=== PATIENT | female | born 1950 | race Caucasian/White ===

== ENCOUNTER 2019-10-30 06:31 | Day surgery (SDC) | payer MEDICARE, OTHER ==
[~2019-10-30 06:31] MED LIST: Lactated Ringers 1,000 ML IV SCH; Lidocaine 1%/Sod Bicarbonate in NS 8.4% 1 ML Syringe IDERM PRN; Sodium Chloride 0.9% 10 ML Syringe FLUSH PRN
--- NOTE | 2019-10-30 07:24 | PCM.PREANE ---
Preanesthetic Assessment - Procedure Proposed Procedure: Colonoscopy - Anesthesia/Transfusion/Family Hx Anesthesia History: Prior Anesthesia Without Reaction Family History of Anesthesia Reaction: No Transfusion History: No Prior Transfusion(s) - Review of Systems General: No Symptoms Pulmonary: No Symptoms Cardiovascular: Dyspnea on Exertion Gastrointestinal: No Symptoms Neurological: No Symptoms Other: Reports: None - Physical Assessment NPO Status Date: 10/29/19 NPO Status Time: 20:00 Vital Signs: Last Vital Signs Temp 36.3 C 10/30/19 06:40 Pulse 63 10/30/19 06:40 Resp 16 10/30/19 06:40 BP 137/72 10/30/19 06:40 Pulse Ox 96 10/30/19 06:40 Height: 1.65 m Weight: 113.398 kg ASA Class: 3 Mental Status: Alert & Oriented x3 Airway Class: Mallampati = 2 Dentition: Reports: Normal Dentition, [place](s) Thyro-Mental Finger Breadths: 3 Mouth Opening Finger Breadths: 2 ROM/Head Extension: Full Lungs: Clear to Auscultation, Normal Respiratory Effort Cardiovascular: Regular Rate, Regular Rhythm - Lab Values: Laboratory Last Values SARS Virus RNA (PCR) Negative (NEGATIVE) 10/28/19 09:30 - Allergies Allergies/Adverse Reactions: Allergies Allergy/AdvReac Type Severity Reaction Status Date / Time hydrochlorothiazide Allergy Rash Verified 10/29/19 15:14 COREY Inhibitors AdvReac Cough Verified 10/29/19 15:14 - Blood Blood Available: No Product(s) Available: None - Anesthesia Plan Pre-Op Medication Ordered: None Beta Viktoriya: Metoprolol Med Last Dose Date: 10/30/19 Med Last Dose Time: 05:30 - Acknowledgements Anesthesia Type Planned: MAC Pt an Appropriate Candidate for the Planned Anesthesia: Yes Alternatives and Risks of Anesthesia Discussed w Pt/Guardian: Yes Pt/Guardian Understands and Agrees with Anesthesia Plan: Yes PreAnesthesia Questionnaire HEENT History: Reports: Hard of Hearing, Other (See Below) Other HEENT History: hearing loss, wears hearing aids, wears glasses Cardiovascular History: Reports: High Cholesterol, Hypertension Respiratory History: Reports: Sleep Apnea Gastrointestinal History: Genitourinary History: Reports: None [employer] History: Reports: None Musculoskeletal History: Reports: Arthritis Neurological History: Reports: None Psychiatric History: Reports: None Endocrine/Metabolic History: Reports: Obesity/BMI 30+ Hematologic History: Reports: None Immunologic History: Reports: None Oncologic (Cancer) History: Reports: None Dermatologic History: Reports: None - Past Surgical History Head Surgeries/Procedures: Reports: None HEENT Surgical History: Reports: Tonsillectomy Cardiovascular Surgical History: Reports: None Respiratory Surgical History: Reports: None GI Surgical History: Reports: Colonoscopy Female Surgical History: Reports: D&C, Hysterectomy Male Surgical History: Reports: None Endocrine Surgical History: Reports: None Neurological Surgical History: Reports: None Musculoskeletal Surgical History: Reports: Other (See Below) Other Musculoskeletal Surgeries/Procedures:: right bunionectomy Oncologic Surgical History: Reports: None Dermatological Surgical History: Reports: None - SUBSTANCE USE Smoking Status *Q: Never Smoker Tobacco Use Within Last Twelve Months: No Second Hand Smoke Exposure: No Days Per Week of Alcohol Use: 0 Number of Drinks Per Day: 0 Total Drinks Per Week: 0 Recreational Drug Use History: No - HOME MEDS Home Medications: Home Meds Furosemide 30 mg PO DAILY 03/22/16 [History] Simvastatin 20 mg PO BEDTIME 03/22/16 [History] amLODIPine Besylate [Amlodipine Besylate] 10 mg PO DAILY 03/22/16 [History] Albuterol Sulfate [Albuterol Sulfate Hfa] 2 puff INH Q4H PRN 10/29/19 [History] Calcium Carbonate [Calcium] 600 mg PO DAILY 10/29/19 [History] Magnesium Oxide 250 mg PO DAILY 10/29/19 [History] Metoprolol Tartrate 100 mg PO BID 10/29/19 [History] Naproxen Sodium [Aleve] 220 mg PO BID PRN 10/29/19 [History] Potassium Gluconate 500 mg PO DAILY 10/29/19 [History] Simvastatin [Zocor] 20 mg PO BEDTIME 10/29/19 [History] Triamcinolone Acetonide 1 dose TOP BID PRN 10/29/19 [History] - CURRENT (IN HOUSE) MEDS Current Meds: Current Medications Lactated Ringer's (Ringers, Lactated) 1,000 mls @ 125 mls/hr IV ASDIRECTED LUCAS Stop: 10/30/19 23:00 Last Admin: 10/30/19 07:00 Dose: 125 mls/hr Lidocaine/Sodium Bicarbonate (Buffered Lidocaine 1% In Ns 8.4%) 0.25 ml IDERM ONETIME PRN PRN Reason: Prior to IV Start Stop: 10/30/19 18:00 Last Admin: 10/30/19 07:00 Dose: 0.25 ml Sodium Chloride (Saline Flush) 10 ml FLUSH ASDIRECTED PRN PRN Reason: Keep Vein Open Stop: 10/30/19 18:00
[2019-10-30] MEDS ORDERED: fentaNYL 100 MCG/2 ML SDV ONE (07:33)
[2019-10-30] MEDS ORDERED: Lidocaine 1% 4 ML ONE (07:33)
[2019-10-30] MEDS ORDERED: Propofol 200 MG/20 ML SDV ONE ×2 (07:33→08:19)
--- NOTE | 2019-10-30 08:40 | PCM.OPNOTE ---
- General Post-Op/Procedure Note Date of Surgery/Procedure: 10/30/19 Operative Procedure(s): Colonoscopy with cold forceps biopsy Findings: colon polyps x 4, diverticulosis Post-Op Diagnosis: Ascending colon polyps 2 mm x 2, Ascending colon polyp 3 mm, Rectal polyp 2 mm, Sigmoid diverticulosis Anesthesia Technique: MAC Primary Surgeon: Jasper Pierson Anesthesia Provider: Chas Mason EBL in mLs: 5 Complications: None Condition: Good Free Text/Narrative:: After the patient gave verbal and written consent she was placed on blood pressure and pulse ox monitoring. She was given IV sedation which she tolerated well. The olympus colonoscope was inserted per rectum and advanced to the cecum without difficulty. The ileocecal valve and appendiceal orfice were imaged documenting cecal intubation. The scope was slowly withdrawn. The prep was good , the views were good. 4 polyps were noted and removed with cold forceps biopsy : 2 mm ascending colon polyps x 2, 3 mm ascending colon polyp, 2 mm rectal polyp. There was good hemostasis at the end of the procedure. Mild to moderate sigmoid diverticulosis was noted. The scope was then retroflexed in the rectum and the details are above. The patient left the OR in good condition. There were no complications.
--- NOTE | 2019-10-30 08:40 | PCM48HPAN ---
Post Anesthesia Note - EVALUATION WITHIN 48HRS OF ANESTHETIC Vital Signs in Normal Range: Yes Patient Participated in Evaluation: Yes Respiratory Function Stable: Yes Airway Patent: Yes Cardiovascular Function Stable: Yes Hydration Status Stable: Yes Pain Control Satisfactory: Yes Nausea and Vomiting Control Satisfactory: Yes Mental Status Recovered: Yes Vital Signs: Last Vital Signs Temp 36.3 C 10/30/19 06:40 Pulse 63 10/30/19 06:40 Resp 16 10/30/19 06:40 BP 137/72 10/30/19 06:40 Pulse Ox 96 10/30/19 06:40 - COMMENTS/OBSERVATIONS Free Text/Narrative:: no anesthesia complications noted
[2019-10-30 08:41] VITALS: PULSE 54
[2019-10-30 08:57] VITALS: BP 114/59
== END 2019-10-30 09:10 | disposition home or self-care (01) ==
LOC: JD.SDS 06:31
PROVIDERS: ATTEND Family Medicine
DX: Z12.11 Encounter for screening for malignant neoplasm of colon (principal); D12.2 Benign neoplasm of ascending colon; K62.1 Rectal polyp; K57.30 Diverticulosis of large intestine without perforation or abscess without bleeding; E78.00 Pure hypercholesterolemia, unspecified; E66.01 Morbid (severe) obesity due to excess calories; Z11.59 Encounter for screening for other viral diseases; Z79.899 Other long term (current) drug therapy; Z88.8 Allergy status to other drugs, medicaments and biological substances; Z68.41 Body mass index [BMI] 40.0-44.9, adult
CPT/HCPCS: 45380; 88305; J2001; J2704; J3010; J7120; U0002; 00812

== ENCOUNTER 2022-08-20 08:49 | Day surgery (SDC) | payer MEDICARE, OTHER ==
[~2022-08-20 08:49] MED LIST changes: +Acetaminophen 325 MG Tab PO SCH; -Lidocaine 1%/Sod Bicarbonate in NS 8.4% 1 ML Syringe IDERM PRN; +Morphine 8 MG, EPINEPHrine 0.3 MG, Cefuroxime 750 MG, Ketorolac 30 MG, Sodium Chloride ... PRN; +Pregabalin 25 MG Cap PO SCH; -Sodium Chloride 0.9% 10 ML Syringe FLUSH PRN; +oxyCODONE ER 10 MG TAB.ER PO SCH
[2022-08-20] MEDS ORDERED: Tranexamic Acid 1,000 MG/10 ML Vial ONE (09:20)
[2022-08-20] MEDS ORDERED: Vancomycin 1 GM SDV ONE (09:20)
[2022-08-20] MEDS ORDERED: Ropivacaine 0.5% 5 MG/ML 30 ML SDV ONE (09:29)
[2022-08-20] MEDS ORDERED: EPINEPHrine 1 MG/ML SDV ONE (09:29)
[2022-08-20] MEDS ORDERED: Ondansetron 4 MG/2 ML SDV ONE (09:31)
[2022-08-20] MEDS ORDERED: Lidocaine 1% 5 ML VIAL ONE (09:31)
[2022-08-20] MEDS ORDERED: Propofol 200 MG/20 ML SDV ONE ×3 (09:31→12:05)
[2022-08-20] MEDS ORDERED: Midazolam 1 MG/ML 2 ML SDV ONE (09:31)
[2022-08-20] MEDS ORDERED: ceFAZolin 2 GM Vial ONE (09:31)
[2022-08-20] MEDS ORDERED: Dexamethasone 4 MG/ML 5 ML MDV ONE (09:31)
[2022-08-20] MEDS ORDERED: Triamcinolone Acetonide 40 MG/ML 1 ML SDV ONE (11:14)
[2022-08-20] MEDS ORDERED: Bupivacaine 0.25% 10 ML SDV ONE (11:14)
[2022-08-20] MEDS ORDERED: HYDROmorphone 0.5 MG/0.5 ML Syringe IVPUSH PRN (12:34)
[2022-08-20] MEDS ORDERED: fentaNYL 100 MCG/2 ML SDV IVPUSH PRN (12:34)
[2022-08-20] MEDS ORDERED: Ondansetron 4 MG/2 ML SDV IVPUSH PRN (12:34)
[2022-08-20] MEDS ORDERED: oxyCODONE 5 MG Tab PO SCH (12:37)
[2022-08-20] MEDS ORDERED: oxyCODONE 5 MG Tab PO PRN (16:36)
[2022-08-20 18:16] VITALS: BP 129/60; PULSE 72
== END 2022-08-20 17:37 | disposition home or self-care (01) ==
LOC: JD.SDS 08:49
PROVIDERS: ATTEND Orthopaedic Surgery
DX: M17.0 Bilateral primary osteoarthritis of knee (principal); I10 Essential (primary) hypertension; E78.00 Pure hypercholesterolemia, unspecified; G47.33 Obstructive sleep apnea (adult) (pediatric); E66.9 Obesity, unspecified; Z88.2 Allergy status to sulfonamides; Z79.899 Other long term (current) drug therapy; Z98.890 Other specified postprocedural states; Z68.41 Body mass index [BMI] 40.0-44.9, adult; Z79.82 Long term (current) use of aspirin
CPT/HCPCS: 0055T; 20610; 27447; 36415; 64447; 73560; 85610; 85730; 97110; 97116; 97161; A9270; C1713; C1776; J0171; J0690; J0697; J1885; J2250; J2270; J2405; J2704; J2795; J3301; J3370; J3490; J7120; 01402; 99100; J1100

== ENCOUNTER 2022-11-22 06:13 | Day surgery (SDC) | payer MEDICARE, OTHER ==
[~2022-11-22 06:13] MED LIST changes: -Acetaminophen 325 MG Tab PO SCH; -Morphine 8 MG, EPINEPHrine 0.3 MG, Cefuroxime 750 MG, Ketorolac 30 MG, Sodium Chloride ... PRN; -Pregabalin 25 MG Cap PO SCH; +Sodium Chloride 0.9% 10 ML Syringe FLUSH PRN; +Sodium Chloride 0.9% 10 ML Syringe FLUSH SCH; -oxyCODONE ER 10 MG TAB.ER PO SCH
[2022-11-22] MEDS ORDERED: Bupivacaine 0.25% 10 ML SDV ONE (06:17)
[2022-11-22] MEDS ORDERED: Lidocaine 1% 10 ML MDV ONE (06:17)
[2022-11-22] MEDS ORDERED: Midazolam 1 MG/ML 2 ML SDV ONE (06:48)
[2022-11-22] MEDS ORDERED: Lidocaine 1% 2 ML ONE (06:48)
[2022-11-22] MEDS ORDERED: Propofol 200 MG/20 ML SDV ONE (06:48)
[2022-11-22] MEDS ORDERED: fentaNYL 100 MCG/2 ML SDV ONE (06:48)
[2022-11-22] MEDS ORDERED: ceFAZolin 2 GM Vial ONE (07:22)
[2022-11-22 08:29] VITALS: BP 106/49; PULSE 52
== END 2022-11-22 08:20 | disposition home or self-care (01) ==
LOC: JD.SDS 06:13
PROVIDERS: ATTEND Orthopaedic Surgery
DX: G56.12 Other lesions of median nerve, left upper limb (principal); G56.02 Carpal tunnel syndrome, left upper limb; I10 Essential (primary) hypertension; G47.33 Obstructive sleep apnea (adult) (pediatric); E66.9 Obesity, unspecified; E78.00 Pure hypercholesterolemia, unspecified; Z68.41 Body mass index [BMI] 40.0-44.9, adult; Z79.899 Other long term (current) drug therapy; Z88.1 Allergy status to other antibiotic agents; Z98.890 Other specified postprocedural states
CPT/HCPCS: 64721; J0690; J2250; J2704; J3010; J3490; J7120; 01810; 99100

== ENCOUNTER 2023-05-09 05:30 | Day surgery (SDC) | payer MEDICARE, OTHER ==
[2023-05-09] MEDS ORDERED: Bupivacaine 0.25% 10 ML SDV ONE (06:00)
[2023-05-09] MEDS ORDERED: Lidocaine 1% 10 ML MDV ONE (06:00)
[2023-05-09] MEDS ORDERED: Midazolam 1 MG/ML 2 ML SDV ONE (06:13)
[2023-05-09] MEDS ORDERED: fentaNYL 100 MCG/2 ML SDV ONE (06:14)
[2023-05-09] MEDS ORDERED: Lidocaine 1% 2 ML ONE (06:14)
[2023-05-09] MEDS ORDERED: Propofol 200 MG/20 ML SDV ONE (06:14)
[2023-05-09] MEDS ORDERED: fentaNYL 100 MCG/2 ML SDV IVPUSH PRN (06:29)
[2023-05-09] MEDS ORDERED: HYDROmorphone 0.5 MG/0.5 ML Syringe IVPUSH PRN (06:29)
[2023-05-09] MEDS ORDERED: Ondansetron 4 MG/2 ML SDV IVPUSH PRN (06:29)
[2023-05-09] MEDS ORDERED: ceFAZolin 2 GM Vial ONE (06:30)
[2023-05-09 07:52] VITALS: BP 116/65; PULSE 51
== END 2023-05-09 07:43 | disposition home or self-care (01) ==
LOC: JD.SDS 05:30
PROVIDERS: ATTEND Orthopaedic Surgery
DX: G56.11 Other lesions of median nerve, right upper limb (principal); I10 Essential (primary) hypertension; E78.00 Pure hypercholesterolemia, unspecified; R60.9 Edema, unspecified; Z79.899 Other long term (current) drug therapy; Z88.2 Allergy status to sulfonamides
CPT/HCPCS: 64721; J0690; J2250; J2704; J3010; J3490; J7120; 01810; 99100

== ENCOUNTER 2024-03-21 23:26 | Emergency (ER) | payer MEDICARE, OTHER ==
[2024-03-21] MEDS ORDERED: Sodium Chloride 0.9% 10 ML Syringe FLUSH PRN (23:45)
[2024-03-21 23:47] VITALS: BP 167/71; PULSE 70
[2024-03-22 00:29] LABS: BASOPHILS ABSOLUTE AUTO 0.1 K/mm3 (0.0-0.2); BASOPHILS PERCENT AUTO 0.5 % (0.0-1.0); EOSINOPHILS ABSOLUTE AUTO 0.3 K/mm3 (0.0-0.4); EOSINOPHILS PERCENT AUTO 3.2 % (0.0-6.0); HEMATOCRIT 43.3 % (37.0-47.0); IMMATURE GRAN ABSOLUTE AUTO 0.05 K/mm3 (0.00-0.05); IMMATURE GRAN PERCENT AUTO 0.5 % (0.0-0.4); LYMPHOCYTES ABSOLUTE AUTO 1.2 K/mm3 (1.0-4.8); LYMPHOCYTES PERCENT AUTO 11.1 % (24.0-44.0); MEAN CORPUSCULAR HEMOGLOBIN 28.6 pg (28.0-32.0); MEAN CORPUSCULAR HGB CONC 32.3 g/dl (32.0-36.0); MEAN CORPUSCULAR VOLUME 88.4 fl (83.0-99.0); MEAN PLATELET VOLUME 9.9 fl (9.4-12.3); MONOCYTES ABSOLUTE AUTO 0.9 K/mm3 (0.0-0.8); MONOCYTES PERCENT AUTO 8.1 % (0.0-8.0); NEUTROPHILS ABSOLUTE AUTO 8.2 K/mm3 (1.8-7.7); NEUTROPHILS PERCENT AUTO 76.6 % (41.0-71.0); PLATELET COUNT,PLT 314 K/mm3 (150-400); WHITE BLOOD CELL COUNT,WBC 10.66 K/mm3 (3.9-11.3)
[2024-03-22 00:32] LABS: CORONAVIRUS COVID-19 NAA NEGATIVE (NEGATIVE); INFLUENZA A NAA NEGATIVE (NEGATIVE); RESPIRATORY SYNCYTIAL VIR NAA NEGATIVE (NEGATIVE)
[2024-03-22 00:58] LABS: ALANINE AMINOTRANSFERASE,ALT 25 U/L (14-59); ALBUMIN 3.7 g/dl (3.4-5.0); ALKALINE PHOSPHATASE 104 U/L (46-116); ANION GAP 14.2 (5-15); ASPARTATE AMNIOTRANSFERASE,AST 15 U/L (15-37); BILIRUBIN TOTAL 0.3 mg/dL (0.2-1.0); BLOOD UREA NITROGEN,BUN 22 mg/dL (7-18); CALCIUM 8.8 mg/dL (8.5-10.1); CARBON DIOXIDE,CO2 27 mEq/L (21-32); CHLORIDE,CL 103 mEq/L (98-107); CREATININE 1.1 mg/dL (0.55-1.02); EST CRCL DRUG DOSING (CG) 41.37 mL/min; ESTIMATED GFR 52 mL/min (>60); GLUCOSE RANDOM 106 mg/dL (70-99); POTASSIUM,K 4.2 mEq/L (3.5-5.1); PROTEIN TOTAL,TP 7.5 g/dl (6.4-8.2); SODIUM,NA 140 mEq/L (136-145)
[2024-03-22 01:01] LABS: TROPONIN I HIGH SENSITIVITY < 4 pg/mL (<=51)
== END 2024-03-22 01:23 | disposition home or self-care (01) ==
LOC: JD.ED 23:26
DX: J06.9 Acute upper respiratory infection, unspecified (principal); E78.00 Pure hypercholesterolemia, unspecified; I10 Essential (primary) hypertension; J45.909 Unspecified asthma, uncomplicated; E66.9 Obesity, unspecified; Z68.37 Body mass index [BMI] 37.0-37.9, adult; Z79.899 Other long term (current) drug therapy; Z88.8 Allergy status to other drugs, medicaments and biological substances
CPT/HCPCS: 0241U; 36415; 71045; 71045-26; 80053; 83880; 84484; 85025; 93005; 99285

== ENCOUNTER 2025-01-28 07:56 | Day surgery (SDC) | payer MEDICARE, OTHER ==
[~2025-01-28 07:56] MED LIST changes: -Lactated Ringers 1,000 ML IV SCH
[2025-01-28] MEDS: Lactated Ringers 1,000 ML IV SCH (08:30)
[2025-01-28] MEDS ORDERED: propofoL 500 MG/50 ML 50 ML ONE (08:37)
[2025-01-28] MEDS ORDERED: Glycopyrrolate 0.2 MG/ML 2 ML SDV ONE (09:18)
[2025-01-28 11:03] VITALS: BP 110/58; PULSE 78
== END 2025-01-28 10:50 | disposition home or self-care (01) ==
LOC: JD.SDS 07:56
PROVIDERS: ATTEND Surgery
DX: Z12.11 Encounter for screening for malignant neoplasm of colon (principal); D12.0 Benign neoplasm of cecum; D12.3 Benign neoplasm of transverse colon; D12.2 Benign neoplasm of ascending colon; D12.8 Benign neoplasm of rectum; K63.5 Polyp of colon; K57.30 Diverticulosis of large intestine without perforation or abscess without bleeding; I10 Essential (primary) hypertension; E78.5 Hyperlipidemia, unspecified; Z88.8 Allergy status to other drugs, medicaments and biological substances; Z86.0101 Personal history of adenomatous and serrated colon polyps; Z79.899 Other long term (current) drug therapy
CPT/HCPCS: 45384; 45385; 88305; J1596; J2704; J7120; 00811; 99100